=== PATIENT | male | born 1980 | race Caucasian/White ===

== ENCOUNTER 2018-10-06 14:26 | Inpatient (IN) | payer OTHER ==
[2018-10-06 15:31] VITALS: BMI 36.6
--- NOTE | 2018-10-06 16:15 | HP ---
COWS - Scale Resting Pulse: 1= CA 81-100 Sweatin=Flushed/Facial Moisture Restless Observation: 0= Sits Still Pupil Size: 0= Normal to Room Light Bone or Joint Aches: 0= None Runny Nose/ Eye Tearin= Runny Nose/Eyes GI Upset > 30mins: 2= Nausea/Diarrhea Tremor Observation: 0= None Yawning Observation: 1= 1-2x During Session Anxiety or Irritability: 2=Irritable/Anxious Goose Flesh Skin: 0=Smooth Skin COWS Score: 10 CIWA Score - Admission Criteria OAS Guidelines: Admission for Medically Managed Detox: Requires at least one of the followin. CIWA greater than 12 2. Seizures within the past 24 hours 3. Delirium tremens within the past 24 hours 4. Hallucinations within the past 24 hours 5. Acute intervention needed for co occurring medical disorder 6. Acute intervention needed for co occurring psychiatric disorder 7. Severe withdrawal that cannot be handled at a lower level of care (continued vomiting, continued diarrhea, abnormal vital signs) requiring intravenous medication and/or fluids 8. Admission ROS [facility] Allergies/Adverse Reactions: Allergies Allergy/AdvReac Type Severity Reaction Status Date / Time Penicillins Allergy Intermediate Rash Verified 10/06/18 15:22 History of Present Illness: pt here requesting detox from heroin use , reports latest use yesterday 6 pm , current daily use 3 bags since 2 months ago , did not go to outpt or any prior tx , denies OD , denies IVDU , denies rx meds . Claims he was referred by [facility] this morning, current symptoms as above . Reports w/d symptoms if not using , as above . denies other illicits or etoh at this time , past use ETOh until 1 year ago " I was drinking a lot " cocaine use - in the past until 1 year ago [facility] [id number] , MDD 90 mg benzo - reports he has not been taking rx for benzo , discarded , denies blackouts or seizures, denies symptoms at this time tobacco : 3-4 cigs/day PMHX : denies PSHX : denies Psych : denies . 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 Denies current legal issues . reports service [id number] w/ 2 deployments , [facility] not [facility] . Others' Prescriptions Patient Name: Mushtaq Camacho Date: 1980 Address: [place] [address] Sex: Male Rx Written Rx Dispensed Drug Quantity Days Supply Prescriber Name 09/13/2018 09/16/2018 alprazolam 2 mg tablet 60 30 Paavn Griffin MD 08/09/2018 08/12/2018 alprazolam 2 mg tablet 60 30 GriffinPavan hutchinson MD 07/14/2018 07/14/2018 alprazolam 2 mg tablet 60 30 AlcarezJoann DO 06/02/2018 06/18/2018 zolpidem tartrate 10 mg tablet 30 30 AlcarezJoann DO 06/02/2018 06/07/2018 alprazolam 2 mg tablet 60 30 AlcarezJoann DO 02/16/2018 05/20/2018 zolpidem tartrate 10 mg tablet 30 30 AlcarezJoann DO 05/09/2018 05/10/2018 alprazolam 2 mg tablet 60 30 AlcarezJoann DO 02/16/2018 04/22/2018 zolpidem tartrate 10 mg tablet 30 30 AlcarezJoann DO 04/11/2018 04/13/2018 alprazolam 2 mg tablet 60 30 AlcarezJoann DO 02/16/2018 03/23/2018 zolpidem tartrate 10 mg tablet 30 30 AlcarezJoann DO 03/16/2018 03/16/2018 alprazolam 2 mg tablet 60 30 AlcarezJoann DO 02/16/2018 02/21/2018 zolpidem tartrate 10 mg tablet 30 30 AlcarezJoann DO 02/16/2018 02/16/2018 alprazolam 2 mg tablet 60 30 AlcarezJoann DO 10/28/2017 01/22/2018 zolpidem tartrate 10 mg tablet 30 30 AlcJoann blevins DO 01/19/2018 01/19/2018 alprazolam 2 mg tablet 60 30 Nita Stephen MD 10/28/2017 12/24/2017 zolpidem tartrate 10 mg tablet 30 30 AlcarezJoann DO 10/28/2017 11/26/2017 zolpidem tartrate 10 mg tablet 30 30 AlcarezEmremaribel Bhakta DO 10/28/2017 10/29/2017 alprazolam 2 mg tablet 60 30 AlcarezJoann Yony DO 09/30/2017 10/28/2017 zolpidem tartrate 10 mg tablet 30 30 Pavan Griffin MD Patient Name: Mushtaq Camacho Date: 1980 Address: [address] [place] [address] Sex: Male Rx Written Rx Dispensed Drug Quantity Days Supply Prescriber Name 12/23/2017 12/23/2017 alprazolam 2 mg tablet 60 30 AlcgenJoann DO 11/25/2017 11/25/2017 alprazolam 2 mg tablet 60 30 AlcJoann blevins Yony DO 10/28/2017 10/28/2017 alprazolam 2 mg tablet 60 30 AlcgenJoann DO 07/14/2018 07/14/2018 alprazolam 2 mg tablet 60 30 AlcgenEmremaribel Bhakta DO 06/02/2018 06/18/2018 zolpidem tartrate 10 mg tablet 30 30 Alcarez Joann F DO 06/02/2018 06/07/2018 alprazolam 2 mg tablet 60 30 AlcgenJoann DO 02/16/2018 05/20/2018 zolpidem tartrate 10 mg tablet 30 30 AlcEmre blevinsmaribel Bhakta DO 05/09/2018 05/10/2018 alprazolam 2 mg tablet 60 30 AlcgenJoann Yony DO 02/16/2018 04/22/2018 zolpidem tartrate 10 mg tablet 30 30 AlcarezJoann Yony DO 04/11/2018 04/13/2018 alprazolam 2 mg tablet 60 30 AlcarezJoann Yony DO 02/16/2018 03/23/2018 zolpidem tartrate 10 mg tablet 30 30 AlcJoann blevins DO 03/16/2018 03/16/2018 alprazolam 2 mg tablet 60 30 AlcJoann blevins DO 02/16/2018 02/21/2018 zolpidem tartrate 10 mg tablet 30 30 AlcJoann blevins DO 02/16/2018 02/16/2018 alprazolam 2 mg tablet 60 30 AlcJoann blevins DO 10/28/2017 01/22/2018 zolpidem tartrate 10 mg tablet 30 30 Alcarez, Joann Bhakta DO 01/19/2018 01/19/2018 alprazolam 2 mg tablet 60 30 Nita Stephen MD 10/28/2017 12/24/2017 zolpidem tartrate 10 mg tablet 30 30 Alcarez, Joann Yony DO 10/28/2017 11/26/2017 zolpidem tartrate 10 mg tablet 30 30 Alcarez, Joann Bhakta DO 10/28/2017 10/29/2017 alprazolam 2 mg tablet 60 30 Alcarez, Joann F DO 09/30/2017 10/28/2017 zolpidem tartrate 10 mg tablet 30 30 Pavan Griffin MD Patient Name: Mushtaq Camacho Date: 1980 Address: [address] [place] [address] Sex: Male Rx Written Rx Dispensed Drug Quantity Days Supply Prescriber Name 12/23/2017 12/23/2017 alprazolam 2 mg tablet 60 30 Emre Giordanoyn Yony DO 11/25/2017 11/25/2017 alprazolam 2 mg tablet 60 30 Alcarez, Joann F DO 10/28/2017 10/28/2017 alprazolam 2 mg tablet 60 30 Alcarez, Joann F DO Exam Limitations: Clinical Condition - Ebola screening Have you traveled outside of the country in the last 21 days: No (N) Have you had contact with anyone from an Ebola affected area: No Do you have a fever: No - Review of Systems Constitutional: See HPI EENT: reports: See HPI Respiratory: reports: No Symptoms reported Cardiac: reports: No Symptoms Reported GI: reports: See HPI : reports: No Symptoms Reported Musculoskeletal: reports: See HPI Neuro: reports: No Symptoms reported Endocrine: reports: No Symptoms Reported Psychiatric: reports: Orientated x3, Agitated, Anxious Patient History - Smoking Cessation Smoking history: Current every day smoker Have you smoked in the past 12 months: Yes Initiated information on smoking cessation: No - Substances abused Heroin Substance route: Inhalation Frequency: Daily Amount used: 3BAGS Age of first use: 28 Date of last use: 10/05/18 Family Disease History - Family Disease History Family Disease History: Diabetes: Father (kidney disease on ESRD ), Mother (htn) , Brother (1 , A & W , DM ), Other: Father, Mother, Brother Other Family History: no children Admission Physical Exam BHS - Vital Signs Vital Signs: Vital Signs - 24 hr 10/06/18 15:21 Temperature 99 F Pulse Rate 95 H Respiratory 18 Rate Blood Pressure 126/68 - Physical General Appearance: Yes: Mild Distress, Moderate Distress, Anxious HEENTM: Yes: EOMI, Hearing grossly Normal, Normocephalic, Normal Voice, Other ( glasse left sided molar gumline protrusion , did not see dentist) Respiratory: Yes: Chest Non-Tender, Lungs Clear, Normal Breath Sounds Neck: Yes: No masses,lesions,Nodules, Trachea in good position Cardiology: Yes: Regular Rhythm, Regular Rate, S1, S2 Abdominal: Yes: Non Tender, Soft Musculoskeletal: Yes: Gait Steady Extremities: Yes: Non-Tender Neurological: Yes: Alert, Motor Strength 5/5 Integumentary: Yes: Warm - Diagnostic (1) Opioid dependence Current Visit: Yes Status: Acute Qualifiers: Substance use status: in withdrawal Qualified Code(s): F11.23 - Opioid dependence with withdrawal (2) Nicotine dependence Current Visit: Yes Status: Chronic Qualifiers: Nicotine product type: cigarettes Breathalyzer - Breathalyzer Breathalyzer: 0 Urine Drug Screen - Test Device Lot number: [id number] Expiration date: 06/23/20 - Control Is test valid?: Yes - Results Drug screen NEGATIVE: No Urine drug screen results: MOP-Opiates, OXY-Oxycodone Inpatient Rehab Admission - Rehab Decision to Admit Inpatient rehab admission?: No
[2018-10-06] MEDS ORDERED: MAGNESIUM HYDROX 2400MG/30ML ORAL SUSPENSION 30 ML CUP PO PRN (16:40)
[2018-10-06] MEDS ORDERED: MAGNESIUM CITRATE 300 ML BOTTLE PO PRN (16:40)
[2018-10-06] MEDS ORDERED: MAG HYDROX/AL HYDROX/SIMETH 30 ML UNIT-DOSE CUP PO PRN (16:40)
[2018-10-06] MEDS ORDERED: ACETAMINOPHEN 325 MG TABLET (FP) PO PRN ×2 (16:40)
[2018-10-06] MEDS ORDERED: NICOTINE POLACRILEX 2 MG GUM BUC PRN (16:40)
[2018-10-06] MEDS ORDERED: BISMUTH SUBSALICYLATE 524 MG/30 ML UD PO PRN (16:40)
[2018-10-06] MEDS ORDERED: MENTHOL/PHENOL 1 EACH UD MM PRN (16:40)
[2018-10-06] MEDS ORDERED: METHADONE HCL 10 MG TABLET (FOR DETOX USE ONLY) PO ONE ×2 (18:12→23:00)
[2018-10-06] MEDS: hydrOXYzine PAMOATE 25 MG CAPSULE (FP) PO PRN (20:29)
[2018-10-06] MEDS: THIAMINE HCL 100 MG TABLET (FP) PO SCH (21:55)
[2018-10-06] MEDS: cloNIDine HCL 0.1 MG TABLET PO PRN (21:56)
[2018-10-06] MEDS: METHOCARBAMOL 500 MG TABLET PO PRN (21:56)
[2018-10-06] MEDS: MELATONIN 5 MG TABLETS PO PRN (22:50)
[2018-10-07] MEDS ORDERED: METHADONE HCL 5 MG TABLET (FOR DETOX USE ONLY) PO ONE (10:00)
[2018-10-07 10:03] LABS: HEMATOCRIT 42.4 % (35.4-49); HEMOGLOBIN 13.5 GM/dL (11.7-16.9); MCH 26.4 pg (25.7-33.7); MCHC 31.9 g/dl (32.0-35.9); MEAN CELL VOLUME 82.7 fl (80-96); MEAN PLT VOLUME 9.9 fl (7.5-11.1); PLATELET COUNT 214 K/MM3 (134-434); RBC 5.12 M/mm3 (4.00-5.60)
[2018-10-07] MEDS: hydrOXYzine PAMOATE 25 MG CAPSULE (FP) PO PRN ×2 (10:05→19:00)
[2018-10-07] MEDS: PRENATAL VITAMINS W/ FOLIC ACID TABLET (FP) PO SCH (10:05)
[2018-10-07 10:08] LABS: ALBUMIN 3.3 g/dl (3.4-5.0); BILIRUBIN,TOTAL 0.2 mg/dL (0.2-1); CALCIUM 8.7 mg/dL (8.5-10.1); CREATININE 0.9 mg/dL (0.55-1.3); POTASSIUM 4.2 mmol/L (3.5-5.1); TOT PROT 6.7 g/dl (6.4-8.2)
--- NOTE | 2018-10-07 11:09 | PN ---
BHS COWS - Scale Resting Pulse: 1= CA 81-100 Sweatin= Chills/Flushing Restless Observation: 1= Difficult to Sit Still Pupil Size: 0= Normal to Room Light Bone or Joint Aches: 1= Mild Discomfort Runny Nose/ Eye Tearin= Nasal Congestion GI Upset > 30mins: 0= None Tremor Observation of Outstretched Hands: 2= Slight Tremor Visible Yawning Observation: 1= 1-2x During Session Anxiety or Irritability: 1=Feels Anxious/Irritable Goose Flesh Skin: 0=Smooth Skin COWS Score: 9 BHS Progress Note (SOAP) Subjective: sweats mild shakes anxiety Objective: 10/07/18 11:07 Vital Signs Temperature 97.9 F 10/07/18 09:15 Pulse Rate 99 H 10/07/18 09:15 Respiratory Rate 18 10/07/18 09:15 Blood Pressure 140/92 10/07/18 09:15 O2 Sat by Pulse Oximetry (%) Laboratory Tests 10/07/18 10/07/18 10/07/18 07:00 07:00 07:00 WBC 9.0 RBC 5.12 Hgb 13.5 Hct 42.4 MCV 82.7 MCH 26.4 MCHC 31.9 L RDW 15.0 Plt Count 214 MPV 9.9 Sodium 140 Potassium 4.2 Chloride 108 H Carbon Dioxide 26 Anion Gap 6 L BUN 11 Creatinine 0.9 Est GFR (CKD-EPI)AfAm 126.02 Est GFR (CKD-EPI)NonAf 108.73 Random Glucose 126 H Calcium 8.7 Total Bilirubin 0.2 AST 10 L ALT 38 Alkaline Phosphatase 80 Total Protein 6.7 Albumin 3.3 L RPR Titer Nonreactive labs noted pt states he is not a diabetic; blood was drawn after he ate or drank something with high sugar [id number] ambulating no acute distress Assessment: 10/07/18 11:08 mild withdrawal sx Plan: continue detox increase fluids monitor sugary juices d/c on wednesday
[2018-10-07] MEDS: IBUPROFEN 400 MG TABLET (FP) PO PRN (13:41)
--- NOTE | 2018-10-07 14:42 | EKG ---
Test Reason : Blood Pressure : / mmHG Vent. Rate : 096 BPM Atrial Rate : 096 BPM P-R Int : 144 ms QRS Dur : 102 ms QT Int : 350 ms P-R-T Axes : 063 041 052 degrees QTc Int : 442 ms NORMAL SINUS RHYTHM NON-SPECIFIC INTRA-VENTRICULAR CONDUCTION DELAY WHEN COMPARED WITH ECG OF 06-OCT-2018 17:52, NO SIGNIFICANT CHANGE WAS FOUND Confirmed by SIMRAN KELLEY MD ([id number]) on 10/07/2018 2:42:15 PM Referred By: WANDY GREEN Confirmed By:SIMRAN KELLEY MD
[2018-10-07] MEDS: cloNIDine HCL 0.1 MG TABLET PO PRN (19:00)
[2018-10-07] MEDS: MELATONIN 5 MG TABLETS PO PRN (22:15)
[2018-10-07] MEDS: THIAMINE HCL 100 MG TABLET (FP) PO SCH (22:15)
[2018-10-08] MEDS ORDERED: METHADONE HCL 10 MG TABLET (FOR DETOX USE ONLY) PO ONE (10:00)
[2018-10-08] MEDS: PRENATAL VITAMINS W/ FOLIC ACID TABLET (FP) PO SCH (10:20)
[2018-10-08] MEDS: IBUPROFEN 400 MG TABLET (FP) PO PRN ×2 (10:22→22:17)
[2018-10-08] MEDS: hydrOXYzine PAMOATE 25 MG CAPSULE (FP) PO PRN ×2 (10:23→22:17)
--- NOTE | 2018-10-08 10:58 | PN ---
BHS COWS - Scale Resting Pulse: 1= [place] 81-100 Sweatin= Beads of Sweat on Face Restless Observation: 1= Difficult to Sit Still Pupil Size: 0= Normal to Room Light Bone or Joint Aches: 1= Mild Discomfort Runny Nose/ Eye Tearin= None GI Upset > 30mins: 0= None Tremor Observation of Outstretched Hands: 1= Tremor Duarte, Not Seen Yawning Observation: 1= 1-2x During Session Anxiety or Irritability: 0= None Goose Flesh Skin: 0=Smooth Skin COWS Score: 8 BHS Progress Note (SOAP) Subjective: c/o sweats, anxiety, body aches, shakes, and irritability. Objective: 10/08/18 10:56 Vital Signs 10/08/18 10/08/18 06:00 09:28 Temperature 98.1 F 97.6 F Pulse Rate 82 79 Respiratory 18 18 Rate Blood Pressure 125/76 132/68 Assessment: 10/08/18 10:56 AOX3, in no acute distress. full rom, ambulating in the unit. withdrawal symptom. Plan: continue detox increase fluids
[2018-10-08] MEDS: MELATONIN 5 MG TABLETS PO PRN (22:15)
[2018-10-08] MEDS: THIAMINE HCL 100 MG TABLET (FP) PO SCH (22:15)
[2018-10-08] MEDS: METHOCARBAMOL 500 MG TABLET PO PRN (22:17)
[2018-10-08] MEDS: cloNIDine HCL 0.1 MG TABLET PO PRN (22:19)
[2018-10-09] MEDS ORDERED: METHADONE HCL 5 MG TABLET (FOR DETOX USE ONLY) PO ONE (06:00)
[2018-10-09 09:55] VITALS: BP 120/58; PULSE 83; TEMP 98.1
--- NOTE | 2018-10-09 16:26 | DS ---
[facility] Detox Discharge Summary Admission Date: 10/06/18 Discharge Date: 10/09/18 - History Present History: Opioid Dependence Additional Comments: Patient completed detox successfully and was discharged safely in stable condition. Pertinent Past History: Opioid dependence Nicotine dependence - Physical Exam Results Vital Signs: Vital Signs Temperature 98.1 F 10/09/18 09:54 Pulse Rate 83 10/09/18 09:54 Respiratory Rate 18 10/09/18 09:54 Blood Pressure 120/58 L 10/09/18 09:54 O2 Sat by Pulse Oximetry (%) Pertinent Admission Physical Exam Findings: Withdrawal symptoms Laboratory Tests 10/07/18 10/07/18 10/07/18 07:00 07:00 07:00 WBC 9.0 RBC 5.12 Hgb 13.5 Hct 42.4 MCV 82.7 MCH 26.4 MCHC 31.9 L RDW 15.0 Plt Count 214 MPV 9.9 Sodium 140 Potassium 4.2 Chloride 108 H Carbon Dioxide 26 Anion Gap 6 L BUN 11 Creatinine 0.9 Est GFR (CKD-EPI)AfAm 126.02 Est GFR (CKD-EPI)NonAf 108.73 Random Glucose 126 H Calcium 8.7 Total Bilirubin 0.2 AST 10 L ALT 38 Alkaline Phosphatase 80 Total Protein 6.7 Albumin 3.3 L RPR Titer Nonreactive Labs reviewed: glucose 126 (could be r/t withdrawal, follow up with PCP for monitoring) - Treatment Hospital Course: Detox Protocol Followed, Detoxed Safely, Responded well, Discharged Condition Good - Medication Discharge Medications: Ambulatory Orders NK [No Known Home Medication] 10/06/18 - Diagnosis (1) Hyperglycemia Status: Acute (2) Opioid dependence Status: Acute Qualifiers: Substance use status: in withdrawal Qualified Code(s): F11.23 - Opioid dependence with withdrawal (3) Nicotine dependence Status: Chronic Qualifiers: Nicotine product type: cigarettes - AMA Did Patient Leave Against Medical Advice: No (follow up with PCP within 1-2 weeks)
== END 2018-10-09 10:25 | disposition home or self-care (01) | DRG 773 ==
LOC: YASAS 14:26 → Y6N 17:16
PROVIDERS: ADMIT Surgery; ATTEND Surgery
PROC: HZ2ZZZZ Detoxification Services for Substance Abuse Treatment (ICD-10-PCS; principal; 2018-10-06)
DX: F11.23 Opioid dependence with withdrawal (principal); F17.213 Nicotine dependence, cigarettes, with withdrawal; R73.9 Hyperglycemia, unspecified
CPT/HCPCS: 36415; 80053; 85027; 86593; 93005; 93010; J0735